=== PATIENT | female | born 1950 | race Caucasian/White ===

== ENCOUNTER 2016-12-19 13:56 | Emergency (ER) | payer MEDICARE, MEDICAID ==
[~2016-12-19] VITALS: Ht 160 cm; Wt 76.0 kg
[2016-12-19 13:57] VITALS: Ht 160 cm; Wt 76.0 kg
[2016-12-19] MEDS ORDERED: HYDROCODONE/APAP (10/325) TAB PO ONE (15:00)
--- NOTE | 2016-12-19 15:55 | RADRPT ---
PROCEDURE: XR Ankle. CLINICAL INDICATION: Ankle pain. Status post fall. TECHNIQUE: AP, lateral and oblique views of the right ankle were performed. COMPARISON: There are no similar studies submitted for comparison. FINDINGS: There is normal bone mineralization. There is no acute fracture or dislocation. The ankle mortise is intact. No osseous lesion is identified. There is a 1 mm calcaneal plantar spur. There is lateral malleolar soft tissue swelling. IMPRESSION: No acute fracture or dislocation. 1 mm calcaneal plantar spur. Lateral malleolar soft tissue swelling. Further findings as detailed above. RPTAT: PP .Ashutosh Castaneda MD, MD Date Time Electronically viewed and signed by .Ashutosh Castaneda MD, MD on 12/19/2016 15:55 .F/
--- NOTE | 2016-12-19 16:05 | RADRPT ---
PROCEDURE: XR Knee. CLINICAL INDICATION: Knee pain. Trauma. TECHNIQUE: AP, lateral, and oblique view of the left knee were obtained. COMPARISON: There are no similar studies submitted for comparison. FINDINGS: There is normal mineralization. There is an acute nondisplaced transverse patellar fracture. There is a large infrapatellar hemarth rosis. The patella is mildly inferiorly displaced. There is mild medial joint space narrowing. The lateral joint space is within normal limits. The patellofemoral joint is within normal limits. IMPRESSION: Acute nondisplaced transverse patellar fracture. There is a large infrapatellar hemarthrosis. Ther e is minimal inferior displacement of the patella. Mild medial joint space narrowing. Further findings as detailed above. RPTAT: AA .Ashutosh Castaneda MD, Date Time Electronically viewed and signed by .Ashutosh Castaneda MD, on 12/19/2016 16:04 .F/
--- NOTE | 2016-12-19 16:08 | ERD ---
ER Documentation Chief Complaint Date/Time DATE: 12/19/16 Chief Complaint Mechanical fall with left knee pain and right ankle pain HPI The patient is a 66-year-old female who presents to the Emergency Department s/ p mechanical trip and fall with complaint of left knee pain and right ankle pain. The patient reports that at 12:00 pm today, she was walking, when she accidentally tripped, inverted her right ankle and fell onto her left knee. Since, she has developed swelling and pain to the left knee and to the lateral aspect of the right ankle. She took a dose of Ibuprofen 800 mg prior to arrival , with only minimal improvement in pain. She rates her current pain as 6/10. The pain is worse with weight-bearing activity, range of motion of the left knee and palpation, and mildly improved with elevation and rest. She denies any numbness, paresthesias or weakness of the distal extremity. Denies restricted range of motion. Denies overlying skin changes, erythema, lacerations, ecchymosis or abrasions. She denies any head or neck injury/trauma, loss of consciousness, or any other complaints. ROS All systems reviewed and are negative except as per history of present illness. Medications Home Meds Active Scripts Hydrocodone/Acetaminophen (Hagaman 5-325 Tablet) 1 Each Tablet, 1 EACH PO Q6, #12 TAB Prov:MARLA SOLIS PA-C 12/19/16 Allergies Allergies: Coded Allergies: No Known Allergy (Unverified , 12/19/16) PMhx/Soc Medical and Surgical Hx: pt denies Medical Hx, pt denies Surgical Hx History of Surgery: No Anesthesia Reaction: No Hx Neurological Disorder: No Hx Respiratory Disorders: No Hx Cardiac Disorders: No Hx Psychiatric Problems: No Hx Miscellaneous Medical Probl: No Hx Alcohol Use: No Hx Substance Use: No Hx Tobacco Use: No Smoking Status: Never smoker Physical Exam Vitals Vital Signs Date Time Temp Pulse Resp B/P Pulse Ox O2 Delivery O2 Flow Rate FiO2 12/19/16 17:04 98.1 75 20 155/77 100 Room Air 12/19/16 13:57 98.1 73 20 157/78 99 Physical Exam GENERAL: Well-developed, well-nourished, in no acute distress. HEENT: Head is normocephalic, atraumatic. No hematomas. Conjunctiva pink. Moist mucous membranes. NECK: Supple. No posterior midline tenderness. Full range of motion. RESPIRATORY: Lungs are clear to auscultation bilaterally. Equal breath sounds. Normal expiratory effort. CARDIOVASCULAR: Regular rate and rhythm. S1 and S2 normal. EXTREMITIES: No clubbing or cyanosis. Right ankle: Mild edema of the right lateral ankle. Pain on palpation of the distal aspect of the tibia. Pain on palpation posterior to the lateral malleolus. Pain on dorsiflexion of the right ankle against resistance. No pain with plantar flexion. The ankle and foot is neurovascularly intact. Anterior drawer test negative. Talar tilt test negative. Left knee: Moderate swelling and tenderness over patellar region, with some crepitus noted. Prepatellar effusion noted. Negative Bekah test. No high-riding patella. Negative anterior drawer test. No increased laxity with varus or valgus stress applied. Range of motion limited secondary to pain. Distal neurovascular status intact. Compartments are soft. Distal pulses 2+. Capillary refill is less than 2 seconds. No foot drop. No calf swelling or calf tenderness. NEUROLOGIC: The patient is alert, awake, and oriented x 3. No focal neurologic deficits. INTEGUMENT: Skin is clean, dry and intact. PSYCHIATRIC: Appropriate; Cooperative. Results 24 hrs Current Medications Medications (Trade) Dose Ordered Sig/Rufina Route PRN Reason Start Time Stop Time Status Last Admin Dose Admin Acetaminophen/ Hydrocodone Bitart (Hagaman (10/325)) 1 tab ONCE ONCE PO 12/19/16 15:00 12/19/16 15:01 DC 12/19/16 14:53 Procedures/MDM DIAGNOSTIC TESTS AND INTERPRETATION: PROCEDURE: XR Ankle. CLINICAL INDICATION: Ankle pain. Status post fall. TECHNIQUE: AP, lateral and oblique views of the right ankle were performed. COMPARISON: There are no similar studies submitted for comparison. FINDINGS: There is normal bone mineralization. There is no acute fracture or dislocation.The ankle mortise is intact.No osseous lesion is identified. There is a 1 mm calcaneal plantar spur. There is lateral malleolar soft tissue swelling. IMPRESSION: No acute fracture or dislocation. 1 mm calcaneal plantar spur. Lateral malleolar soft tissue swelling. Further findings as detailed above. .Ashutosh Castaneda MD, Date Time Electronically viewed and signed by .Ashutosh Castaneda MD, MD on 12/19/2016 15:55 PROCEDURE: XR Knee. CLINICAL INDICATION: Knee pain. Trauma. TECHNIQUE: AP, lateral, and oblique view of the left knee were obtained. COMPARISON: There are no similar studies submitted for comparison. FINDINGS:There is normal mineralization. There is an acute nondisplaced transverse patellar fracture. There is a large infrapatellar hemarthrosis. The patella is mildly inferiorly displaced. There is mild medial joint space narrowing. The lateral joint space is within normal limits. The patellofemoral joint is within normal limits. IMPRESSION: Acute nondisplaced transverse patellar fracture. There is a large infrapatellar hemarthrosis. There is minimal inferior displacement of the patella. Mild medial joint space narrowing. Further findings as detailed above. .Ashutosh Castaneda MD, Date Time Electronically viewed and signed by .Ashutosh Castaneda MD, MD on 12/19/2016 16:04 The patient case was reviewed and discussed with Dr. Torres, who reviewed patient's imaging. He recommends placement of posterior ankle splint to RLE, and knee immobilizer to LLE. Recommends that the patient be discharged home to follow up with orthopedics as an outpatient. SPLINT APPLICATION: INDICATION: Right ankle sprain. LOCATION: Right lower extremity. TYPE OF SPLINT: Posterior short leg splint. NEUROVASCULAR EXAM: The patients extremity was neurovascularly intact prior to and status post splint placement. KNEE IMMOBILIZER APPLICATION: INDICATION: Left patellar fracture. LOCATION: Left lower extremity. NEUROVASCULAR EXAM: The patients extremity was neurovascularly intact prior to and status post knee immobilizer placement. MEDICAL DECISION MAKING: This is an 66-year-old female presenting to the Emergency Department with left knee pain and right ankle pain s/p mechanical trip and fall, inverting her right ankle and falling directly onto her left knee. The patient pain and swelling localized to the lateral aspect of the right ankle and to the prepatellar region of the left knee on physical examination. Otherwise vital signs were stable. Her extremity was neurovascularly intact. Compartments were soft. The differential diagnosis includes, but is not limited to, sprain, strain, fracture, dislocation, subluxation, neurovascular injury, compartment syndrome. X-ray imaging of the ankle revealed soft tissue swelling over the lateral malleolus. Otherwise, no other ankle fracture identified. Imaging of the patient's knee revealed an acute nondisplaced transverse patellar fracture with a large infrapatellar hemarthrosis. No evidence of neurovascular compromised distal to injury. No evidence of compartment syndrome. After rest and administration of Hagaman, the patient reports no new complaints and decreased pain. Upon my review and interpretation of the patients presentation, clinical data, and overall ER course, I believe the patients symptoms are most consistent with right ankle sprain and left patellar fracture. A posterior ankle splint was placed to her right ankle. Knee immobilizer was placed to the left lower extremity. At this time, the patient is in stable condition, and therefore can be discharged home with a prescription for Hagaman and strict return precautions for signs of worsening condition. The patient is advised to follow up with an clinical safety specialist within 1-2 days for reevaluation and further management, or to return to the ER sooner for any worsening symptoms. She is instructed on further outpatient pain control methods, including rest, icing and elevation. I shared all diagnostic imaging studies with the patient at length and in great detail, and the patient verbally understands and agrees with the plan for further observation and care as an outpatient. At the time of discharge all questions were answered. Departure Diagnosis: Primary Impression: Right ankle sprain Encounter type: initial encounter Involved ligament of ankle: unspecified ligament Qualified Code: S93.401A - Sprain of right ankle, unspecified ligament, initial encounter Additional Impressions: Left patella fracture Encounter type: initial encounter Fracture type: closed Fracture morphology : transverse Fracture alignment: nondisplaced Qualified Code: S82.035A - Closed nondisplaced transverse fracture of left patella, initial encounter Fall Encounter type: initial encounter Qualified Code: W19.XXXA - Fall, initial encounter Condition: Stable Patient Instructions: Fall Prevention, Patella Fracture, Self-Care for Strains and Sprains, Treating Ankle Sprains, What Are Ankle Sprains? Referrals: SALOMÓN SOLOMON MD Additional Instructions: Follow up with your primary medical provider and an clinical safety specialist in 1- 2 days for reevaluation and further management. Return to the ED sooner for any new or worsening symptoms. MARLA SOLIS PA-C Dec 19, 2016 16:08
[2016-12-19] MEDS ORDERED: HYDR-906 PO (16:13)
[2016-12-19 17:04] VITALS: BP 155/77; PULSE 75; RESP 20; TEMP 98.1
== END 2016-12-19 17:22 | disposition home or self-care (01) ==
LOC: FTE 13:56
DX: S93.401A Sprain of unspecified ligament of right ankle, initial encounter (principal); S82.035A Nondisplaced transverse fracture of left patella, initial encounter for closed fracture; W01.0XXA Fall on same level from slipping, tripping and stumbling without subsequent striking against object, initial encounter; Y92.9 Unspecified place or not applicable
CPT/HCPCS: 73562

== ENCOUNTER 2017-12-27 01:41 | Emergency (ER) | END 2017-12-27 08:09 | disposition home or self-care (01) ==